=== PATIENT | female | born 1980 | race African-American/Black ===

== ENCOUNTER 2020-06-15 20:43 | Emergency (ER) | payer SELFPAY ==
[2020-06-15] MEDS ORDERED: Mag-Al 1200 mg/1200 mg/30 ML UDCUP ONE (21:09)
[2020-06-15] MEDS ORDERED: levETIRAcetam 500 MG TAB PO SCH (21:15)
[2020-06-15 21:28] LABS: Glucose POC Confirmation 94 mg/dl (70-105)
[2020-06-15] MEDS ORDERED: Acetaminophen 500 MG TAB ONE (21:39)
== END 2020-06-15 22:40 | disposition home or self-care (01) ==
LOC: ERS 20:43
DX: G40.909 Epilepsy, unspecified, not intractable, without status epilepticus (principal); Z79.899 Other long term (current) drug therapy; K21.9 Gastro-esophageal reflux disease without esophagitis; F31.9 Bipolar disorder, unspecified
CPT/HCPCS: 36415; 82947; 93005